=== PATIENT | male | born 1960 | race Two or more races ===

== ENCOUNTER 2016-11-11 04:22 | Inpatient (IN) | payer BC ==
[~2016-11-11] VITALS: Ht 177.8 cm; Wt 81.6 kg
[2016-11-11] VITALS (7 sets, daily range): BP systolic 121–169; BP diastolic 70–90
[2016-11-11] MEDS ORDERED: METFORMIN HCL500 M1 ORAL (04:38)
--- NOTE | 2016-11-11 04:40 | Emergency Room Report ---
History of Present Illness General Chief Complaint: Back Pain-No Injury Source: Patient Present Illness HPI Is a 55-year-old male with a history of kidney stones requiring lithotripsy. Last one was 6 years ago. He presents with chief complaint of right flank pain. Acute onset around 3 AM. He has nausea and vomiting. Pain is severe. 10 out of 10. Reading on the right groin. 2 days ago has similar pain but went away and he wasn't as bad. Denies any other trauma. Denies any other complaint. Allergies: Coded Allergies: No Known Allergies (Unverified , 11/11/16) Patient History Past Medical History: see triage record, old chart reviewed Past Surgical History: other Pertinent Family History: none Social History: Denies: smoking Immunizations: other Reviewed Nursing Documentation: PMH: Agreed, PSxH: Agreed Nursing Documentation-PMH Past Medical History: No History, Except For Hx Hypertension: Yes Hx Diabetes: Yes - dm 2 Review of Systems Eye: Denies: blurred vision, eye pain ENT: Denies: ear pain, nose congestion, throat swelling Respiratory: Denies: cough, shortness of breath Cardiovascular: Denies: chest pain, palpitations Gastrointestinal: Reports: abdominal pain, nausea, vomiting, Denies: diarrhea Musculoskeletal: Denies: back pain, joint pain Skin: Denies: rash Neurological: Denies: headache, numbness Endocrine: Denies: increased thirst, increased urine Hematologic/Lymphatic: Denies: easy bruising All Other Systems: negative except mentioned in HPI Physical Exam Vital Signs Date Time Temp Pulse Resp B/P Pulse Ox O2 Delivery O2 Flow Rate FiO2 11/11/16 04:31 68 20 181/96 99 Room Air vitals showed hypertension Sp02 EP Interpretation: reviewed, normal General Appearance: well appearing, no apparent distress, alert Head: normocephalic, atraumatic Eyes: bilateral eye EOMI, bilateral eye PERRL ENT: hearing grossly normal, normal pharynx Neck: full range of motion, supple, no meningismus Respiratory: chest non-tender, lungs clear, normal breath sounds Cardiovascular #1: regular rate, rhythm, no murmur Gastrointestinal: normal bowel sounds, non tender, no mass, no organomegaly, no bruit, non-distended Musculoskeletal: back normal, gait/station normal, normal range of motion Neurologic: alert, oriented x3 Psychiatric: mood/affect normal Skin: warm/dry Medical Decision Making Diagnostic Impression: Primary Impression: UTI (urinary tract infection) Qualified Codes: N30.00 - Acute cystitis without hematuria Additional Impressions: Ureteral stone with hydronephrosis Proteinuria ER Course Patient presents with a right ureteral stone. It showed obstruction with early infection. He is high risk for deterioration and sepsis. Will make for IV antibiotics and urology consultation. Patient pain is well-controlled now. Lab Results Impression labs unremarkable. CT/MRI/US Diagnostic Results CT/MRI/US Diagnostic Results : Imaging Test Ordered: CT abd/pelvis Impression Read by radiologist. 6 mm obstructing stone in the right distal half of the right ureter causing moderate hydronephrosis. Small amount of perinephric strip that straining. Last Vital Signs Date Time Temp Pulse Resp B/P Pulse Ox O2 Delivery O2 Flow Rate FiO2 11/11/16 04:31 68 20 181/96 99 Room Air Status: improved Disposition: ADMITTED INPATIENT Condition: Serious DESTINY QUILES M.D. Nov 11, 2016 04:40
[2016-11-11] MEDS ORDERED: Ketorolac 30mg Inj IV ONE (04:45)
[2016-11-11 05:06] LABS: BASOPHILS % (AUTO) 0.9 % (0.0-2.0); EOSINOPHILS % (AUTO) 0.6 % (0.0-3.0); LYMPHOCYTES % (AUTO) 26.7 % (20.0-45.0); MEAN CORPUSCULAR HEMOGLOBIN 30.5 PG (27.0-31.0); MEAN CORPUSCULAR HGB CONC 31.7 G/DL (32.0-36.0); MEAN CORPUSCULAR VOLUME 96 FL (80-99); MEAN PLATELET VOLUME 8.6 FL (6.5-10.1); MONOCYTES % (AUTO) 5.2 % (1.0-10.0); NEUTROPHILS % (AUTO) 66.7 % (45.0-75.0); PLATELET COUNT 242 K/UL (150-450); RED BLOOD COUNT 5.43 M/UL (4.70-6.10); RED CELL DISTRIBUTION WIDTH 12.3 % (11.6-14.8)
[2016-11-11 05:20] LABS: APPEARANCE,URINE SLIGHTLY CLOUDY; KETONES,URINE NEGATIVE (NEGATIVE); LEUKOCYTE ESTERASE ,URINE 1+ (NEGATIVE); NITRITE,URINE NEGATIVE (NEGATIVE); PH,URINE 5 (4.5-8.0); PROTEIN,URINE 3+ (NEGATIVE); UROBILINOGEN,URINE NORMAL MG/DL (0.0-1.0)
[2016-11-11 05:23] LABS: ANION GAP 14 (5-15); CALCIUM 9.4 mg/dL (8.6-10.2); CARBON DIOXIDE 25 mEQ/L (20-30); CHLORIDE 103 mEQ/L (98-107); CREATININE 1.1 mg/dL (0.7-1.2); GLOMERULAR FILTRATION RATE > 60 mL/min (>60); HEMOLYSIS 6; POTASSIUM 4.2 mEQ/L (3.4-4.9); SODIUM 142 mEQ/L (135-145)
[2016-11-11 05:41] LABS: BACTERIA,URINE FEW /HPF; RBC,URINE 30-40 /HPF (0 - 0); SQUAMOUS EPITHELIAL CELL,UR FEW /LPF (NONE/OCC)
--- NOTE | 2016-11-11 15:39 | History & Physical ---
History and Physical History & Physicial Dictated for Int Med-Dr Link no. [id number]. EDUARDO MORELAND Nov 11, 2016 15:39
[2016-11-11] MEDS: cefTRIAXone 1 GM in D5W 50 ML IVPB SCH (16:00)
[2016-11-11] MEDS: NovoLOG Insulin Flexpen SUBQ SCH ×2 (16:30→20:33)
[2016-11-11] MEDS: Norco 5mg/325mg tab ORAL PRN (17:45)
[2016-11-11] MEDS: metFORMIN 500mg tab ORAL SCH (18:50)
[2016-11-11] MEDS: Tamsulosin 0.4mg cap ORAL SCH (20:30)
--- NOTE | 2016-11-11 20:58 | Consultation ---
DATE OF CONSULTATION: 11/11/2016 CONSULTING PHYSICIAN: Derek Harris M.D. REFERRING PHYSICIAN: Speedy Link M.D. REASON FOR CONSULTATION: Evaluation of nephrolithiasis. HISTORY OF PRESENT ILLNESS: This is a pleasant 55-year-old male. He came to the emergency room because of right-sided flank pain. He had a CT scan that showed an obstructed 5 to 6 mm stone in the right mid ureter. There was a questionable infection. Urology evaluation is requested. The patient states that he has a history of kidney stones in the past and therefore he also required one laser lithotripsy two years ago. He has had some flank pain and nausea, which is now resolved. He denies fevers or chills. PAST MEDICAL HISTORY: Significant for above. Also history of diabetes and HIV. MEDICATIONS: Current medications here in the hospital, the patient was given Rocephin and Toradol. I believe he is on metformin at home. ALLERGIES: No known drug allergies. SOCIAL HISTORY: He is currently nonsmoker. FAMILY HISTORY: Noncontributory. REVIEW OF SYSTEMS: As above. PHYSICAL EXAMINATION: GENERAL: This is a well-developed and well-nourished male, in no acute distress. VITAL SIGNS: Temperature is 97.8, blood pressure is 139/86, pulse 71, and respirations 12. HEENT: Normocephalic. NECK: Supple. ABDOMEN: Soft. BACK: No CVA tenderness. EXTREMITIES: No clubbing or cyanosis. LABORATORY DATA: His white count is 12.0, hemoglobin 16.6, and platelets are 242,000. BUN is 25, creatinine 1.1, and potassium 4.2. UA showed 30 to 40 RBCs, 5 to 10 WBCs, 3+ protein, nitrites negative, and there is no bacteria. DIAGNOSTIC IMAGING STUDIES: The patient had a CT scan of the abdomen and pelvis. The preliminary report showed a 5 to 6 mm stone of the right distal ureter with hydronephrosis. There was mention of nonobstructing stone of the left kidney. IMPRESSION: 1. Nephrolithiasis. 2. Hydronephrosis. 3. Renal colic. 4. Hematuria. 5. Pyuria. 6. Urinary frequency by history. PLAN AND DISCUSSION: Again, the patient does have a moderate-sized stone of the right ureter with some obstruction. He did have flank pain, which is now resolved. He did have pyuria. He is currently feeling fairly well. I did go over the options of trial of passage versus ureteroscopy and laser lithotripsy. The patient would prefer to see if he can pass the stone and as such, we will strain his urine. I will also add tamsulosin 0.4 mg daily. He will be monitored. If he is not able to pass the stone or has pain or fevers, then we may have to proceed with stent placement and lithotripsy. I will follow the patient and any other recommendation will be forthcoming. Thank you, Dr. Link, for asking me to see this patient. Derek Harris M.D. DR: DENISE JOB#: [id number] CC:
--- NOTE | 2016-11-11 22:47 | History and Physical Report ---
DATE OF ADMISSION: 11/11/2016 CHIEF COMPLAINT: The patient is a 55-year-old male with history of previous renal calculi, who presents with complaint of right flank pain. HISTORY OF PRESENT ILLNESS: Began early this morning about 2 a.m. The patient awoke from his sleep with a right-sided flank pain. The patient states that the pain radiates from the lower right quadrant to the lower right back. The patient denies hematuria or dysuria. The patient presented to [facility]. The patient states that his pain was 10/10 intensity. The patient has a history of renal calculi x2. The patient was admitted for right flank pain to rule out pyelonephritis versus acute renal calculus. PAST MEDICAL HISTORY: Significant for, 1. Human immunodeficiency virus, which was diagnosed in 1991. The patient states his last T-cell count was greater than 700. The patient states his HIV viral load is undetectable. 2. History of renal calculi x2 in 2009 and 2010. 3. Type 2 diabetes. PAST SURGICAL HISTORY: Significant for, 1. Cystoscopy for renal calculus in 2009. 2. Appendectomy at age 16. CURRENT MEDICATIONS: 1. Metformin 500 mg one tablet p.o. twice daily. 2. Complera of an unknown dose daily. ALLERGIES: No known drug allergies. SOCIAL HISTORY: The patient is single and is retired from [employer]. The patient denies tobacco or alcohol use. REVIEW OF SYSTEMS: Constitutional: The patient denies weight loss or weight gain. The patient denies fevers or chills. HEENT: The patient denies ear or throat pain. The patient denies headache. Cardiovascular: The patient denies palpitations or chest pain. Chest: The patient denies wheeze or shortness of breath. Abdomen: The patient complains of right flank pain as above. The patient denies nausea, vomiting, diarrhea, or constipation. Genitourinary: The patient denies dysuria or increased frequency of urination. The patient denies hematuria. Neuromuscular: The patient denies seizures or generalized weakness. PHYSICAL EXAMINATION: VITAL SIGNS: Temperature 97.9 degrees, respirations 20, pulse 73, and blood pressure 129/77. GENERAL: The patient is a well-developed, well-nourished, male, in no apparent distress. HEENT: Eyes, pupils are equal and responsive to light and accommodation. Extraocular movements are intact. NECK: Supple without lymphadenopathy. CHEST: Lungs are clear to auscultation bilaterally without wheezes or rales. CARDIOVASCULAR: Regular rhythm and rate. S1 and S2 normal without murmurs, rubs, or gallops. ABDOMEN: Soft and nondistended with positive bowel sounds. There is tenderness to palpation in the right lower quadrant. There is CVA tenderness to the right back. RECTAL/GENITAL: Refused. NEUROLOGIC: Cranial nerves II through XII were grossly intact without focal deficits. Motor strength is 5/5 bilaterally. Deep tendon reflexes 2+ plantar. EXTREMITIES: Negative for clubbing, cyanosis, or edema. LABORATORY STUDIES: WBC 12.3, hemoglobin 16.6, hematocrit 52.3, and platelets 242,000. Sodium 142, potassium 4.2, chloride 103, CO2 25, BUN 25, creatinine 1.1, and glucose elevated at 154. Urinalysis showed 3+ protein, 5+ occult blood, 1+ leukocyte esterase, 30 to 40 RBCs, and 5 to 10 WBCs. ASSESSMENT: This is a 55-year-old male. 1. Right flank pain. 2. History of renal calculus. 3. Human immunodeficiency virus. 4. Diabetes type 2. TREATMENT: 1. Flank pain/history of renal calculi. A Neurology consultation was obtained with Dr. Lancaster. A CT scan of the abdomen is pending. The patient is currently receiving pain control with intravenous morphine. Recommendation of urology. The patient is currently strain all urine. 2. Human immunodeficiency virus. Complera is non-formulary at [facility]. An Infectious Disease consultation was obtained with Dr. Abarca. 3. Diabetes type 2. Continue metformin as above. A NovoLog sliding scale has been instituted. Scotty Tellez M.D. DR: MELINDA JOB#: [id number] CC:
[2016-11-12] VITALS: BP 130/75
[2016-11-12] MEDS: Norco 5mg/325mg tab ORAL PRN ×2 (01:39→08:11)
[2016-11-12 04:00] VITALS: BP 126/82
[2016-11-12] MEDS: NovoLOG Insulin Flexpen SUBQ SCH ×4 (06:30→21:00)
[2016-11-12 07:18] LABS: BASOPHILS % (AUTO) 1.5 % (0.0-2.0); EOSINOPHILS % (AUTO) 1.4 % (0.0-3.0); LYMPHOCYTES % (AUTO) 35.2 % (20.0-45.0); MEAN CORPUSCULAR HEMOGLOBIN 30.2 PG (27.0-31.0); MEAN CORPUSCULAR HGB CONC 31.7 G/DL (32.0-36.0); MEAN CORPUSCULAR VOLUME 95 FL (80-99); MEAN PLATELET VOLUME 7.9 FL (6.5-10.1); MONOCYTES % (AUTO) 8.1 % (1.0-10.0); NEUTROPHILS % (AUTO) 53.9 % (45.0-75.0); PLATELET COUNT 212 K/UL (150-450); RED BLOOD COUNT 4.74 M/UL (4.70-6.10); WHITE BLOOD COUNT 7.5 K/UL (4.8-10.8)
[2016-11-12 07:35] LABS: ALANINE AMINOTRANSFERASE 15 U/L (3-41); ALBUMIN/GLOBULIN RATIO 1.6 (1.0-2.7); ANION GAP 13 (5-15); ASPARTATE AMINO TRANSFERASE 18 U/L (5-40); CALCIUM 8.7 mg/dL (8.6-10.2); CARBON DIOXIDE 25 mEQ/L (20-30); CHLORIDE 102 mEQ/L (98-107); CREATININE 0.9 mg/dL (0.7-1.2); GLOMERULAR FILTRATION RATE > 60 mL/min (>60); HEMOLYSIS 8; MAGNESIUM 2.1 mg/dL (1.7-2.5); PHOSPHORUS 3.9 mg/dL (2.5-4.8); POTASSIUM 4.1 mEQ/L (3.4-4.9); SODIUM 140 mEQ/L (135-145); TOTAL PROTEIN 6.1 g/dL (6.6-8.7)
[2016-11-12 08:00] VITALS: BP 143/94
[2016-11-12] MEDS: metFORMIN 500mg tab ORAL SCH ×2 (08:10→18:07)
--- NOTE | 2016-11-12 09:51 | Urology Progress Note ---
Assessment/Plan Assessment/Plan 1. Nephrolithiasis. 2. Hydronephrosis. 3. Renal colic. 4. Hematuria. 5. Pyuria. 6. Urinary frequency by history. flomax and abx trial of passage may need litho/stent at some point Subjective Allergies: Coded Allergies: No Known Allergies (Unverified , 11/11/16) Subjective feels fair, no stone passed, occ pain Objective Last 24 Hour Vital Signs Date Time Temp Pulse Resp B/P Pulse Ox O2 Delivery O2 Flow Rate FiO2 11/12/16 09:10 97.9 11/12/16 08:00 97.5 70 19 143/94 97 Room Air 11/12/16 04:00 97.3 66 19 126/82 98 Room Air 11/12/16 00:00 97.7 72 18 130/75 98 Room Air 11/11/16 20:00 97.9 69 140/90 Room Air 11/11/16 16:00 97.9 68 21 127/76 97 Room Air 11/11/16 11:30 98.1 73 20 121/70 99 Room Air 11/11/16 10:30 98.1 64 18 135/75 99 Room Air 11/11/16 10:00 68 19 117/68 96 Room Air Intake and Output 11/11/16 11/12/16 19:00 07:00 Intake Total 1140 ml Balance 1140 ml Intake Oral 1140 ml # Voids 1 4 Current Medications Medications (Trade) Dose Ordered Sig/Maico Route PRN Reason Start Time Stop Time Status Last Admin Dose Admin Acetaminophen (Tylenol) 650 mg EVERY 6 HOURS PRN ORAL Mild Pain/Temp > 100.5 11/11/16 11:45 12/11/16 11:44 Acetaminophen/ Hydrocodone Bitart 1 tab 1 tab Q6H PRN ORAL For Pain 5-7 11/11/16 11:45 11/18/16 11:44 11/12/16 08:11 Ceftriaxone Sodium/Dextrose (Rocephin/D5W 50ml) 50 ml @ 100 mls/hr Q24H IVPB 11/11/16 16:00 11/18/16 15:59 Dextrose (Dextrose 50%) STAT PRN IV Hypoglycemia 11/11/16 15:30 12/11/16 15:29 Insulin Aspart (NovoLOG) BEFORE MEALS AND HS SUBQ 11/11/16 16:30 12/11/16 16:29 Metformin HCl (Glucophage) 500 mg BID ORAL 11/11/16 18:00 12/11/16 17:59 11/12/16 08:10 Morphine Sulfate (Morphine Sulfate) 2 mg EVERY 6 HOURS PRN IVP severe pain 8-10 11/11/16 11:45 11/18/16 11:44 Ondansetron HCl (Zofran) 4 mg EVERY 4 HOURS PRN IVP Nausea & Vomiting 11/11/16 15:00 12/11/16 14:59 Sodium Chloride 1,000 ml @ 75 mls/hr [id number] IV 11/11/16 11:45 12/11/16 11:44 11/12/16 01:34 Tamsulosin HCl (Flomax) 0.4 mg BEDTIME ORAL 11/11/16 21:00 12/11/16 20:59 11/11/16 20:30 Laboratory Tests 11/12/16 05:15: White Blood Count 7.5, Red Blood Count 4.74, Hemoglobin 14.3, Hematocrit 45.2, Mean Corpuscular Volume 95, Mean Corpuscular Hemoglobin 30.2, Mean Corpuscular Hemoglobin Concent 31.7L, Red Cell Distribution Width 12.0, Platelet Count 212, Mean Platelet Volume 7.9, Neutrophils (%) (Auto) 53.9, Lymphocytes (%) (Auto) 35.2, Monocytes (%) (Auto) 8.1, Eosinophils (%) (Auto) 1.4, Basophils (%) (Auto ) 1.5, Sodium Level 140, Potassium Level 4.1, Chloride Level 102, Carbon Dioxide Level 25, Anion Gap 13, Blood Urea Nitrogen 18, Creatinine 0.9, Estimat Glomerular Filtration Rate > 60, Glucose Level 109H, Hemoglobin A1c 5.8, Calcium Level 8.7, Phosphorus Level 3.9, Magnesium Level 2.1, Total Bilirubin 0.3, Aspartate Amino Transf (AST/SGOT) 18, Alanine Aminotransferase (ALT/SGPT) 15, Alkaline Phosphatase 52, Total Protein 6.1L, Albumin 3.8, Globulin 2.3, Albumin/Globulin Ratio 1.6 Height (Feet): 5 Height (Inches): 10.00 Weight (Pounds): 180 Objective exam stable RADHA THOMPSON Nov 12, 2016 09:51
--- NOTE | 2016-11-12 10:29 | Diagnostic Imaging Report ---
Indication: Abdominal pain Technique: Continuous helical transaxial imaging of the abdomen and pelvis was obtained from the lung bases to the pubic symphysis. No intravenous contrast was administered. Coronal 2-D reformats were also obtained. Total Dose length Product (DLP): [address] Dose Index Volume (CTDIvol): 16 mGy Comparison: none Findings: Lung bases are clear. There is right perinephric stranding and hydronephrosis secondary to a small stone in the right mid ureter measuring approximately 7 mm. Curvilinear constipation noted in the lower pole calyx of the left kidney consistent with a nonobstructive stone. Diverticula noted throughout the colon without diverticulitis. Gallbladder is unremarkable. No free fluid or free air identified. Appendix not identified but no secondary signs identified. Bilateral inguinal hernias containing fat are noted. Buttock implants noted. Impression: Hydronephrosis secondary to a 6 mm right mid ureter stone. Other incidental findings include bilateral inguinal hernias containing fat, diverticulosis of the colon, mild atherosclerotic vascular disease, buttock implants. [facility] has communicated the preliminary results to the Emergency Department. Their findings are largely concordant with this report. The CT scanner at [facility] is accredited by the [employer] and the scans are performed using protocols designed to limit radiation exposure to as low as reasonably achievable to attain images of sufficient resolution adequate for diagnostic evaluation.
[2016-11-12] MEDS: Morphine Sulfate 2mg/ml Inj IVP PRN (11:14)
[2016-11-12 12:00] VITALS: BP 146/91
--- NOTE | 2016-11-12 12:11 | Infectious Diseases Prog Note ---
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 4) pain mgt P) 1) ciprofloxacin 2) check uc 3) anti-retroviral complera not available - d/w pharmacy 4) thank you Subjective Allergies: Coded Allergies: No Known Allergies (Unverified , 11/11/16) Objective Vital Signs Last 24 Hour Vital Signs Date Time Temp Pulse Resp B/P Pulse Ox O2 Delivery O2 Flow Rate FiO2 11/12/16 11:44 97.9 11/12/16 09:10 97.9 11/12/16 08:00 97.5 70 19 143/94 97 Room Air 11/12/16 04:00 97.3 66 19 126/82 98 Room Air 11/12/16 00:00 97.7 72 18 130/75 98 Room Air 11/11/16 20:00 97.9 69 140/90 Room Air 11/11/16 16:00 97.9 68 21 127/76 97 Room Air Height (Feet): 5 Height (Inches): 10.00 Weight (Pounds): 180 Laboratory Tests Test 11/12/16 05:15 White Blood Count 7.5 K/UL (4.8-10.8) Red Blood Count 4.74 M/UL (4.70-6.10) Hemoglobin 14.3 G/DL (14.2-18.0) Hematocrit 45.2 % (42.0-52.0) Mean Corpuscular Volume 95 FL (80-99) Mean Corpuscular Hemoglobin 30.2 PG (27.0-31.0) Mean Corpuscular Hemoglobin Concent 31.7 G/DL (32.0-36.0) L Red Cell Distribution Width 12.0 % (11.6-14.8) Platelet Count 212 K/UL (150-450) Mean Platelet Volume 7.9 FL (6.5-10.1) Neutrophils (%) (Auto) 53.9 % (45.0-75.0) Lymphocytes (%) (Auto) 35.2 % (20.0-45.0) Monocytes (%) (Auto) 8.1 % (1.0-10.0) Eosinophils (%) (Auto) 1.4 % (0.0-3.0) Basophils (%) (Auto) 1.5 % (0.0-2.0) Sodium Level 140 mEQ/L (135-145) Potassium Level 4.1 mEQ/L (3.4-4.9) Chloride Level 102 mEQ/L (98-107) Carbon Dioxide Level 25 mEQ/L (20-30) Anion Gap 13 (5-15) Blood Urea Nitrogen 18 mg/dL (7-23) Creatinine 0.9 mg/dL (0.7-1.2) Estimat Glomerular Filtration Rate > 60 mL/min (>60) Glucose Level 109 mg/dL (74-106) H Hemoglobin A1c 5.8 % (< 6.0) Calcium Level 8.7 mg/dL (8.6-10.2) Phosphorus Level 3.9 mg/dL (2.5-4.8) Magnesium Level 2.1 mg/dL (1.7-2.5) Total Bilirubin 0.3 mg/dL (0.0-1.2) Aspartate Amino Transf (AST/SGOT) 18 U/L (5-40) Alanine Aminotransferase (ALT/SGPT) 15 U/L (3-41) Alkaline Phosphatase 52 U/L (40-129) Total Protein 6.1 g/dL (6.6-8.7) L Albumin 3.8 g/dL (3.5-5.2) Globulin 2.3 g/dL Albumin/Globulin Ratio 1.6 (1.0-2.7) Current Medications Medications (Trade) Dose Ordered Sig/Maico Route PRN Reason Start Time Stop Time Status Last Admin Dose Admin Acetaminophen (Tylenol) 650 mg EVERY 6 HOURS PRN ORAL Mild Pain/Temp > 100.5 11/11/16 11:45 12/11/16 11:44 Acetaminophen/ Hydrocodone Bitart 1 tab 1 tab Q6H PRN ORAL For Pain 5-7 11/11/16 11:45 11/18/16 11:44 11/12/16 08:11 Ceftriaxone Sodium/Dextrose (Rocephin/D5W 50ml) 50 ml @ 100 mls/hr Q24H IVPB 11/11/16 16:00 11/18/16 15:59 Dextrose (Dextrose 50%) STAT PRN IV Hypoglycemia 11/11/16 15:30 12/11/16 15:29 Insulin Aspart (NovoLOG) BEFORE MEALS AND HS SUBQ 11/11/16 16:30 12/11/16 16:29 Metformin HCl (Glucophage) 500 mg BID ORAL 11/11/16 18:00 12/11/16 17:59 11/12/16 08:10 Morphine Sulfate (Morphine Sulfate) 2 mg EVERY 6 HOURS PRN IVP severe pain 8-10 11/11/16 11:45 11/18/16 11:44 11/12/16 11:14 Ondansetron HCl (Zofran) 4 mg EVERY 4 HOURS PRN IVP Nausea & Vomiting 11/11/16 15:00 12/11/16 14:59 11/12/16 11:22 Sodium Chloride 1,000 ml @ 75 mls/hr [id number] IV 11/11/16 11:45 12/11/16 11:44 11/12/16 01:34 Tamsulosin HCl (Flomax) 0.4 mg BEDTIME ORAL 11/11/16 21:00 12/11/16 20:59 11/11/16 20:30 GENOVEVA VILLALTA Nov 12, 2016 12:11
[2016-11-12 16:00] VITALS: BP 135/94
[2016-11-12] MEDS: cefTRIAXone 1 GM in D5W 50 ML IVPB SCH (17:35)
--- NOTE | 2016-11-12 19:09 | Internal Med Progress Note ---
Subjective Date of Service: Nov 12, 2016 Physician Name Eduardo Moreland Attending Physician Speedy Link MD Current Medications Medications (Trade) Dose Ordered Sig/Maico Route PRN Reason Start Time Stop Time Status Last Admin Dose Admin Acetaminophen (Tylenol) 650 mg EVERY 6 HOURS PRN ORAL Mild Pain/Temp > 100.5 11/11/16 11:45 12/11/16 11:44 Acetaminophen/ Hydrocodone Bitart 1 tab 1 tab Q6H PRN ORAL For Pain 5-7 11/11/16 11:45 11/18/16 11:44 11/12/16 08:11 Ceftriaxone Sodium/Dextrose (Rocephin/D5W 50ml) 50 ml @ 100 mls/hr Q24H IVPB 11/11/16 16:00 11/18/16 15:59 11/12/16 17:35 Ciprofloxacin (Cipro 500mg tab) 500 mg EVERY 12 HOURS ORAL 11/12/16 21:00 11/19/16 20:59 Dextrose (Dextrose 50%) STAT PRN IV Hypoglycemia 11/11/16 15:30 12/11/16 15:29 Insulin Aspart (NovoLOG) BEFORE MEALS AND HS SUBQ 11/11/16 16:30 12/11/16 16:29 Metformin HCl (Glucophage) 500 mg BID ORAL 11/11/16 18:00 12/11/16 17:59 11/12/16 18:07 Morphine Sulfate (Morphine Sulfate) 2 mg EVERY 6 HOURS PRN IVP severe pain 8-10 11/11/16 11:45 11/18/16 11:44 11/12/16 11:14 Ondansetron HCl (Zofran) 4 mg EVERY 4 HOURS PRN IVP Nausea & Vomiting 11/11/16 15:00 12/11/16 14:59 11/12/16 11:22 Sodium Chloride 1,000 ml @ 75 mls/hr [id number] IV 11/11/16 11:45 12/11/16 11:44 11/12/16 01:34 Tamsulosin HCl (Flomax) 0.4 mg BEDTIME ORAL 11/11/16 21:00 12/11/16 20:59 11/11/16 20:30 Allergies: Coded Allergies: No Known Allergies (Unverified , 11/11/16) ROS Limited/Unobtainable: No Constitutional: Reports: no symptoms HEENT: Reports: no symptoms Cardiovascular: Reports: no symptoms Respiratory: Reports: no symptoms Gastrointestinal/Abdominal: Reports: other - right flank pain Genitourinary: Reports: flank pain, hematuria Subjective 55 YO M admitted with right flank pain; now right ureteral stone and hydronephrosis. Cover for Int [facility]-Dr Link. C/O right flank pain. Objective Last Vital Signs Date Time Temp Pulse Resp B/P Pulse Ox O2 Delivery O2 Flow Rate FiO2 11/12/16 16:00 98.1 85 20 135/94 97 Room Air General Appearance: WD/WN, no apparent distress, alert EENT: PERRL/EOMI, normal ENT inspection Neck: non-tender, normal alignment, supple, normal inspection Cardiovascular: normal peripheral pulses, normal rate, regular rhythm, no gallop/murmur, no JVD Respiratory/Chest: chest wall non-tender, lungs clear, normal breath sounds, no respiratory distress, no accessory muscle use Abdomen: normal bowel sounds, soft, no organomegaly, no mass, tender - right flank pain Neurologic: furniture upholsterer II-XII grossly normal, no motor/sensory deficits Skin: normal pigmentation, warm/dry Laboratory Tests Test 11/12/16 05:15 White Blood Count 7.5 K/UL (4.8-10.8) Red Blood Count 4.74 M/UL (4.70-6.10) Hemoglobin 14.3 G/DL (14.2-18.0) Hematocrit 45.2 % (42.0-52.0) Mean Corpuscular Volume 95 FL (80-99) Mean Corpuscular Hemoglobin 30.2 PG (27.0-31.0) Mean Corpuscular Hemoglobin Concent 31.7 G/DL (32.0-36.0) L Red Cell Distribution Width 12.0 % (11.6-14.8) Platelet Count 212 K/UL (150-450) Mean Platelet Volume 7.9 FL (6.5-10.1) Neutrophils (%) (Auto) 53.9 % (45.0-75.0) Lymphocytes (%) (Auto) 35.2 % (20.0-45.0) Monocytes (%) (Auto) 8.1 % (1.0-10.0) Eosinophils (%) (Auto) 1.4 % (0.0-3.0) Basophils (%) (Auto) 1.5 % (0.0-2.0) Sodium Level 140 mEQ/L (135-145) Potassium Level 4.1 mEQ/L (3.4-4.9) Chloride Level 102 mEQ/L (98-107) Carbon Dioxide Level 25 mEQ/L (20-30) Anion Gap 13 (5-15) Blood Urea Nitrogen 18 mg/dL (7-23) Creatinine 0.9 mg/dL (0.7-1.2) Estimat Glomerular Filtration Rate > 60 mL/min (>60) Glucose Level 109 mg/dL (74-106) H Hemoglobin A1c 5.8 % (< 6.0) Calcium Level 8.7 mg/dL (8.6-10.2) Phosphorus Level 3.9 mg/dL (2.5-4.8) Magnesium Level 2.1 mg/dL (1.7-2.5) Total Bilirubin 0.3 mg/dL (0.0-1.2) Aspartate Amino Transf (AST/SGOT) 18 U/L (5-40) Alanine Aminotransferase (ALT/SGPT) 15 U/L (3-41) Alkaline Phosphatase 52 U/L (40-129) Total Protein 6.1 g/dL (6.6-8.7) L Albumin 3.8 g/dL (3.5-5.2) Globulin 2.3 g/dL Albumin/Globulin Ratio 1.6 (1.0-2.7) Intake and Output 11/11/16 11/12/16 19:00 07:00 Intake Total 1140 ml Balance 1140 ml Intake Oral 1140 ml # Voids 1 4 Assessment/Plan Problem List: (1) Renal calculi (2) HIV (human immunodeficiency virus infection) Assessment & Plan: Complera non formulary. See ID note. (3) Diabetes mellitus Assessment & Plan: Cont metformin and novolog sliding scale. (4) Hydronephrosis (5) Ureteral stone with hydronephrosis Assessment & Plan: Right. See urology note. May require lithotripsy vs ureteroscopy if stone does not spontaneously pass. (6) UTI (urinary tract infection) Assessment & Plan: Await urine cult and sens. Cont ciprofloxacin for now. Status: not improved EDUARDO MORELAND Nov 12, 2016 19:09
[2016-11-12 20:00] VITALS: BP 150/91
[2016-11-12] MEDS ORDERED: Ciprofloxacin 500mg tab ORAL SCH (21:00)
[2016-11-12] MEDS: Tamsulosin 0.4mg cap ORAL SCH (21:14)
--- NOTE | 2016-11-12 23:47 | Consultation ---
DATE OF CONSULTATION: 11/12/2016 INFECTIOUS DISEASE CONSULTATION: ATTENDING PHYSICIAN: Speedy Link M.D. I was asked by Dr. Scotty Tellez to see this patient. CHIEF COMPLAINT: The patient's chief complaint coming in with kidney stones. REASON FOR CONSULTATION: Possible UTI and HIV. HISTORY OF PRESENT ILLNESS: This is a very pleasant 55-year-old male who comes in with right flank pain. The patient had a CT scan of the abdomen and pelvis, which showed right renal calculi or renal stone in the right ureter. The patient also had hydronephrosis. The patient has an elevated white count and possible urinalysis. He has positive UTI. Infectious Disease consultation requested for antibiotic management. getting IV antibiotics for this patient. At this time, I placed him on Cipro. Urine cultures pending. The patient also HIV positive with T-cell count. He said around 700 plus. He is presently on Complera, however, I discussed with pharmacy yesterday. All the components of Complera not available in this facility. At this time, the patient cannot Complera. MAR was noted. Orders were noted. Case discussed with Dr. Tellez. PAST MEDICAL HISTORY: Includes history of following, the patient has a past medical history of HIV diagnosed in 1981 T-cell count is greater than 700 and viral load is undetectable. He has a history of type 2 diabetes. Also history of renal calculi in the past. Please see past medical history in medical order. MEDICATIONS: Prior to admission included metformin and Complera. Presently, Rocephin cannot be given to this patient. I put him on Cipro. Other medications, he is on pain medications including Flomax, Glucophage, NovoLog insulin, IV fluids, Zofran, Tylenol, morphine, and [place]. Please see medications in medical order. ALLERGIES: No known drug allergies. SOCIAL HISTORY: Negative for smoking, alcohol, or drug abuse. FAMILY HISTORY: Noncontributory. Negative for exposure to tuberculosis or cancer. REVIEW OF SYSTEMS: Constitutional: The patient has generalized weakness and fatigue, but no fever, chills, or night sweats. Head And Neck: No thrush, dysphagia or sinus tenderness. Cardiac: No chest pain or palpitations. GI: No nausea, vomiting, or diarrhea. : No dysuria or frequency. He has right flank pain. Pulmonary: No shortness of breath, cough, or sputum production. Skin: No rash or itching. Extremities: No extremity pain. Neurologic: No seizures. PHYSICAL EXAMINATION: GENERAL: The patient is alert and responsive, in no acute distress. VITAL SIGNS: Temperature 97.9 degrees, pulse 70, respiratory rate 19, blood pressure 142/94, and saturation 97%. HEENT: Head and Neck: Oral exam, no thrush. Eye exam, no icterus. Neck is supple. No JVD. No sinus tenderness. Normocephalic. No facial droop. No neck stiffness. HEART: Regular. No gallop or murmur. No friction or rub. LUNGS: Clear bilaterally. No rhonchi or rales. ABDOMEN: Soft. Positive bowel sounds. Nontender. SKIN: No rash or dermatitis. MUSCULOSKELETAL: No effusions noted. Legs are without cellulitis. PERIPHERAL VASCULAR: No cyanosis or gangrene. RECTAL: Deferred. GENITOURINARY: No Zambrano. He has right CVA pain. LINE: Line site is without phlebitis. NEUROLOGIC: No seizures. Intact. LABORATORY AND DIAGNOSTIC DATA: As follows, white count on admission 12.0 now 7.5. Creatinine is 0.9. Urine culture is pending. Urinalysis had 1+ leukocyte esterase, 3-4 RBCs, 5-10 white blood cells, and positive urinalysis. Urine culture is pending. Imaging studies, CT scan the abdomen and pelvis showed hydronephrosis with right renal ureteral calculi. ASSESSMENT AND PLAN: 1. The patient has a right renal ureteral calculi or renal stone, hydronephrosis, and possible urinary tract infection. The patient has leukocytosis. Continue antibiotics. Rocephin. At this time, we will place him on IV Rocephin. We will place him or oral Cipro. We will check urine culture. The patient has been seen by Urology. I discussed with Dr. Harris and hopefully kidney stones passes if not may need surgical intervention. urine culture. Dr. Tellez. 2. Human immunodeficiency virus. T-cell count greater than 700. No need to get a CD4 follow up with primary HIV doctor. We do not have all the components of Complera available and discussed with pharmacy at this time. 3. Pain management and treatment per Dr. Tellez. 4. Diabetes treatment per Dr. Tellez. 5. . 6. IV fluids. 7. No known allergies. 8. Social history negative. 9. MAR was noted. 10. Case discussed with Dr. Tellez and Dr. Harris as well as RN. Susana Abarca M.D. DR: Gianni JOB#: [id number] CC:
[2016-11-13] VITALS: BP 142/87
[2016-11-13 06:26] LABS: BASOPHILS % (AUTO) 1.4 % (0.0-2.0); LYMPHOCYTES % (AUTO) 36.1 % (20.0-45.0); MEAN CORPUSCULAR HGB CONC 31.5 G/DL (32.0-36.0); MEAN CORPUSCULAR VOLUME 95 FL (80-99); MEAN PLATELET VOLUME 7.4 FL (6.5-10.1); MONOCYTES % (AUTO) 7.8 % (1.0-10.0); NEUTROPHILS % (AUTO) 53.8 % (45.0-75.0); PLATELET COUNT 216 K/UL (150-450); RED BLOOD COUNT 4.86 M/UL (4.70-6.10); RED CELL DISTRIBUTION WIDTH 12.4 % (11.6-14.8); WHITE BLOOD COUNT 7.2 K/UL (4.8-10.8)
[2016-11-13] MEDS: NovoLOG Insulin Flexpen SUBQ SCH ×2 (06:30→11:30)
[2016-11-13 06:56] LABS: ANION GAP 10 (5-15); CALCIUM 8.9 mg/dL (8.6-10.2); CARBON DIOXIDE 27 mEQ/L (20-30); CHLORIDE 102 mEQ/L (98-107); CREATININE 0.8 mg/dL (0.7-1.2); GLOMERULAR FILTRATION RATE > 60 mL/min (>60); HEMOLYSIS 4; POTASSIUM 4.1 mEQ/L (3.4-4.9); SODIUM 139 mEQ/L (135-145)
[2016-11-13 08:00] VITALS: BP 143/82
[2016-11-13] MEDS: Norco 5mg/325mg tab ORAL PRN (09:25)
[2016-11-13] MEDS: metFORMIN 500mg tab ORAL SCH (09:25)
--- NOTE | 2016-11-13 10:12 | Urology Progress Note ---
Assessment/Plan Assessment/Plan 1. Nephrolithiasis. 2. Hydronephrosis. 3. Renal colic. 4. Hematuria. 5. Pyuria. 6. Urinary frequency by history. flomax and abx pt wants to cont with trial of passage refusing any other intervention may need litho/stent at some point d/w Dr. Tellez Subjective Allergies: Coded Allergies: No Known Allergies (Unverified , 11/11/16) Subjective feels fair, no stone passed, occ pain Objective Last 24 Hour Vital Signs Date Time Temp Pulse Resp B/P Pulse Ox O2 Delivery O2 Flow Rate FiO2 11/13/16 08:00 97.9 68 18 143/82 97 Room Air 11/13/16 00:00 98.1 76 16 142/87 98 Room Air 11/12/16 20:00 98.6 79 20 150/91 97 Room Air 11/12/16 16:00 98.1 85 20 135/94 97 Room Air 11/12/16 12:00 98.4 81 20 146/91 98 Room Air 11/12/16 11:44 97.9 Intake and Output 11/12/16 11/13/16 19:00 07:00 Intake Total 1120 ml 120 ml Balance 1120 ml 120 ml Intake Oral 720 ml 120 ml IV Total 400 ml # Voids 7 1 Microbiology Date/Time Source Procedure Growth Status 11/11/16 15:25 Blood Blood Culture - Preliminary NO GROWTH AFTER 24 HOURS Resulted 11/12/16 10:00 Indwelling Cath Urine Culture - Preliminary NO GROWTH Resulted Current Medications Medications (Trade) Dose Ordered Sig/[place] Route PRN Reason Start Time Stop Time Status Last Admin Dose Admin Acetaminophen (Tylenol) 650 mg EVERY 6 HOURS PRN ORAL Mild Pain/Temp > 100.5 11/11/16 11:45 12/11/16 11:44 Acetaminophen/ Hydrocodone Bitart 1 tab 1 tab Q6H PRN ORAL For Pain 5-7 11/11/16 11:45 11/18/16 11:44 11/13/16 09:25 Ceftriaxone Sodium/Dextrose (Rocephin/D5W 50ml) 50 ml @ 100 mls/hr Q24H IVPB 11/11/16 16:00 11/18/16 15:59 11/12/16 17:35 Dextrose (Dextrose 50%) STAT PRN IV Hypoglycemia 11/11/16 15:30 12/11/16 15:29 Insulin Aspart (NovoLOG) BEFORE MEALS AND HS SUBQ 11/11/16 16:30 12/11/16 16:29 Metformin HCl (Glucophage) 500 mg BID ORAL 11/11/16 18:00 12/11/16 17:59 11/13/16 09:25 Morphine Sulfate (Morphine Sulfate) 2 mg EVERY 6 HOURS PRN IVP severe pain 8-10 11/11/16 11:45 11/18/16 11:44 11/12/16 11:14 Ondansetron HCl (Zofran) 4 mg EVERY 4 HOURS PRN IVP Nausea & Vomiting 11/11/16 15:00 12/11/16 14:59 11/12/16 11:22 Sodium Chloride 1,000 ml @ 75 mls/hr [id number] IV 11/11/16 11:45 12/11/16 11:44 11/13/16 02:48 Tamsulosin HCl (Flomax) 0.4 mg BEDTIME ORAL 11/11/16 21:00 12/11/16 20:59 11/12/16 21:14 Laboratory Tests 11/13/16 05:45: White Blood Count 7.2, Red Blood Count 4.86, Hemoglobin 14.6, Hematocrit 46.2, Mean Corpuscular Volume 95, Mean Corpuscular Hemoglobin 30.0, Mean Corpuscular Hemoglobin Concent 31.5L, Red Cell Distribution Width 12.4, Platelet Count 216, Mean Platelet Volume 7.4, Neutrophils (%) (Auto) 53.8, Lymphocytes (%) (Auto) 36.1, Monocytes (%) (Auto) 7.8, Eosinophils (%) (Auto) 1.0, Basophils (%) (Auto ) 1.4, Sodium Level 139, Potassium Level 4.1, Chloride Level 102, Carbon Dioxide Level 27, Anion Gap 10, Blood Urea Nitrogen 14, Creatinine 0.8, Estimat Glomerular Filtration Rate > 60, Glucose Level 104, Calcium Level 8.9 Height (Feet): 5 Height (Inches): 10.00 Weight (Pounds): 180 Objective exam stable RADHA THOPMSON Nov 13, 2016 10:12
[2016-11-13] MEDS ORDERED: FLOMAX0.4 MG ORAL (10:30)
[2016-11-13] MEDS ORDERED: NORCO 5-325 TA1 EACH ORAL (10:30)
--- NOTE | 2016-11-13 10:35 | Internal Med Progress Note ---
Subjective Date of Service: Nov 13, 2016 Physician Name Scotty Moreland Attending Physician Speedy Link MD Current Medications Medications (Trade) Dose Ordered Sig/[place] Route PRN Reason Start Time Stop Time Status Last Admin Dose Admin Acetaminophen (Tylenol) 650 mg EVERY 6 HOURS PRN ORAL Mild Pain/Temp > 100.5 11/11/16 11:45 12/11/16 11:44 Acetaminophen/ Hydrocodone Bitart 1 tab 1 tab Q6H PRN ORAL For Pain 5-7 11/11/16 11:45 11/18/16 11:44 11/13/16 09:25 Ceftriaxone Sodium/Dextrose (Rocephin/D5W 50ml) 50 ml @ 100 mls/hr Q24H IVPB 11/11/16 16:00 11/18/16 15:59 11/12/16 17:35 Dextrose (Dextrose 50%) STAT PRN IV Hypoglycemia 11/11/16 15:30 12/11/16 15:29 Insulin Aspart (NovoLOG) BEFORE MEALS AND HS SUBQ 11/11/16 16:30 12/11/16 16:29 Metformin HCl (Glucophage) 500 mg BID ORAL 11/11/16 18:00 12/11/16 17:59 11/13/16 09:25 Morphine Sulfate (Morphine Sulfate) 2 mg EVERY 6 HOURS PRN IVP severe pain 8-10 11/11/16 11:45 11/18/16 11:44 11/12/16 11:14 Ondansetron HCl (Zofran) 4 mg EVERY 4 HOURS PRN IVP Nausea & Vomiting 11/11/16 15:00 12/11/16 14:59 11/12/16 11:22 Sodium Chloride 1,000 ml @ 75 mls/hr [id number] IV 11/11/16 11:45 12/11/16 11:44 11/13/16 02:48 Tamsulosin HCl (Flomax) 0.4 mg BEDTIME ORAL 11/11/16 21:00 12/11/16 20:59 11/12/16 21:14 Allergies: Coded Allergies: No Known Allergies (Unverified , 11/11/16) Subjective 55 YO M admitted with right flank pain; now right ureteral stone and hydronephrosis. Cover for Int Med-Dr Link. Right flank pain improved. Objective Last Vital Signs Date Time Temp Pulse Resp B/P Pulse Ox O2 Delivery O2 Flow Rate FiO2 11/13/16 08:00 97.9 68 18 143/82 97 Room Air Laboratory Tests Test 11/13/16 05:45 White Blood Count 7.2 K/UL (4.8-10.8) Red Blood Count 4.86 M/UL (4.70-6.10) Hemoglobin 14.6 G/DL (14.2-18.0) Hematocrit 46.2 % (42.0-52.0) Mean Corpuscular Volume 95 FL (80-99) Mean Corpuscular Hemoglobin 30.0 PG (27.0-31.0) Mean Corpuscular Hemoglobin Concent 31.5 G/DL (32.0-36.0) L Red Cell Distribution Width 12.4 % (11.6-14.8) Platelet Count 216 K/UL (150-450) Mean Platelet Volume 7.4 FL (6.5-10.1) Neutrophils (%) (Auto) 53.8 % (45.0-75.0) Lymphocytes (%) (Auto) 36.1 % (20.0-45.0) Monocytes (%) (Auto) 7.8 % (1.0-10.0) Eosinophils (%) (Auto) 1.0 % (0.0-3.0) Basophils (%) (Auto) 1.4 % (0.0-2.0) Sodium Level 139 mEQ/L (135-145) Potassium Level 4.1 mEQ/L (3.4-4.9) Chloride Level 102 mEQ/L (98-107) Carbon Dioxide Level 27 mEQ/L (20-30) Anion Gap 10 (5-15) Blood Urea Nitrogen 14 mg/dL (7-23) Creatinine 0.8 mg/dL (0.7-1.2) Estimat Glomerular Filtration Rate > 60 mL/min (>60) Glucose Level 104 mg/dL (74-106) Calcium Level 8.9 mg/dL (8.6-10.2) Microbiology Date/Time Source Procedure Growth Status 11/11/16 15:25 Blood Blood Culture - Preliminary NO GROWTH AFTER 24 HOURS Resulted 11/11/16 15:10 Blood Blood Culture - Preliminary NO GROWTH AFTER 24 HOURS Resulted 11/12/16 10:00 Indwelling Cath Urine Culture - Preliminary NO GROWTH Resulted Intake and Output 11/12/16 11/13/16 19:00 07:00 Intake Total 1120 ml 120 ml Balance 1120 ml 120 ml Intake Oral 720 ml 120 ml IV Total 400 ml # Voids 7 1 Objective General Appearance: WD/WN, no apparent distress, alert EENT: PERRL/EOMI, normal ENT inspection Neck: non-tender, normal alignment, supple, normal inspection Cardiovascular: normal peripheral pulses, normal rate, regular rhythm, no gallop/murmur, no JVD Respiratory/Chest: chest wall non-tender, lungs clear, normal breath sounds, no respiratory distress, no accessory muscle use Abdomen: normal bowel sounds, soft, no organomegaly, no mass, tender - right flank pain Neurologic: strategic manager II-XII grossly normal, no motor/sensory deficits Skin: normal pigmentation, warm/dry Assessment/Plan Problem List: (1) Renal calculi (2) HIV (human immunodeficiency virus infection) Assessment & Plan: Complera non formulary. See ID note. (3) Diabetes mellitus Assessment & Plan: Cont metformin and novolog sliding scale. (4) Hydronephrosis (5) Ureteral stone with hydronephrosis Assessment & Plan: Right. See urology note. May require lithotripsy vs ureteroscopy if stone does not spontaneously pass. (6) UTI (urinary tract infection) Assessment & Plan: Await urine cult and sens. Cont ceftriaxone for now per ID Status: progressing Assessment/Plan Possible discharge home today if cleared by urology. SCOTTY MORELAND Nov 13, 2016 10:35
[2016-11-13 12:00] VITALS: BP 150/90
[2016-11-13] MEDS: Morphine Sulfate 2mg/ml Inj IVP PRN (13:03)
[2016-11-13 16:00] VITALS: BP 147/86
--- NOTE | 2016-11-13 17:04 | Infectious Diseases Prog Note ---
Assessment/Plan Assessment/Plan ASSESSMENT AND PLAN: 1. right renal calculi with hydronephrosis, possible uti, + ua - rocephin, uc negative so far - check final uc 2. hiv - cd4 > 700, complera components not available at this hospital, patient to resume anti-retrovirals at home 3. Pain management and treatment per Dr. Tellez. 4. Diabetes treatment per Dr. Tellez. 5. dm, hx renal calculi 6. IV fluids. 7. No known allergies. 8. Social history negative. 9. MAR was noted., fh-nc, sh - negative 10. d/w RN and patient Subjective Constitutional: Denies: fever Respiratory: Denies: shortness of breath Cardiovascular: Denies: chest pain Gastrointestinal/Abdominal: Denies: nausea Genitourinary: Denies: dysuria Neurologic: Denies: headache Psychiatric: Denies: depression Hematologic: Denies: bleeding Musculoskeletal: Denies: pain Allergies: Coded Allergies: No Known Allergies (Unverified , 11/11/16) Objective Vital Signs Last 24 Hour Vital Signs Date Time Temp Pulse Resp B/P Pulse Ox O2 Delivery O2 Flow Rate FiO2 11/13/16 16:00 98.2 82 20 147/86 98 Room Air 11/13/16 13:33 98.1 11/13/16 12:00 98.1 84 20 150/90 97 Room Air 11/13/16 10:24 98.1 11/13/16 08:00 97.9 68 18 143/82 97 Room Air 11/13/16 00:00 98.1 76 16 142/87 98 Room Air 11/12/16 20:00 98.6 79 20 150/91 97 Room Air Height (Feet): 5 Height (Inches): 10.00 Weight (Pounds): 180 General Appearance: no acute distress HEENT: normocephalic, atraumatic, anicteric, mucous membranes moist, PERRL, pharynx normal, supple, no JVD Respiratory/Chest: lungs clear, normal breath sounds, no respiratory distress, no accessory muscle use Cardiovascular: normal rate, regular rhythm, no gallop/murmur, no JVD Abdomen: normal bowel sounds, soft, non tender, no organomegaly, non distended Genitourinary: other - no Extremities: no cyanosis Skin: no rash Neurologic/Psychiatric: concaver II-XII grossly normal, alert, oriented x 3, responsive Lymphatic: no neck adenopathy Musculoskeletal: no effusion Objective CT scan results: Impression: Hydronephrosis secondary to a 6 mm right mid ureter stone. Other incidental findings include bilateral inguinal hernias containing fat, diverticulosis of the colon, mild atherosclerotic vascular disease, buttock implants. Microbiology Date/Time Source Procedure Growth Status 11/11/16 15:25 Blood Blood Culture - Preliminary NO GROWTH AFTER 24 HOURS Resulted 11/11/16 15:10 Blood Blood Culture - Preliminary NO GROWTH AFTER 24 HOURS Resulted 11/12/16 10:00 Indwelling Cath Urine Culture - Preliminary NO GROWTH Resulted Laboratory Tests Test 11/13/16 05:45 White Blood Count 7.2 K/UL (4.8-10.8) Red Blood Count 4.86 M/UL (4.70-6.10) Hemoglobin 14.6 G/DL (14.2-18.0) Hematocrit 46.2 % (42.0-52.0) Mean Corpuscular Volume 95 FL (80-99) Mean Corpuscular Hemoglobin 30.0 PG (27.0-31.0) Mean Corpuscular Hemoglobin Concent 31.5 G/DL (32.0-36.0) L Red Cell Distribution Width 12.4 % (11.6-14.8) Platelet Count 216 K/UL (150-450) Mean Platelet Volume 7.4 FL (6.5-10.1) Neutrophils (%) (Auto) 53.8 % (45.0-75.0) Lymphocytes (%) (Auto) 36.1 % (20.0-45.0) Monocytes (%) (Auto) 7.8 % (1.0-10.0) Eosinophils (%) (Auto) 1.0 % (0.0-3.0) Basophils (%) (Auto) 1.4 % (0.0-2.0) Sodium Level 139 mEQ/L (135-145) Potassium Level 4.1 mEQ/L (3.4-4.9) Chloride Level 102 mEQ/L (98-107) Carbon Dioxide Level 27 mEQ/L (20-30) Anion Gap 10 (5-15) Blood Urea Nitrogen 14 mg/dL (7-23) Creatinine 0.8 mg/dL (0.7-1.2) Estimat Glomerular Filtration Rate > 60 mL/min (>60) Glucose Level 104 mg/dL (74-106) Calcium Level 8.9 mg/dL (8.6-10.2) GENOVEVA Young Nov 13, 2016 17:04
--- NOTE | 2016-11-14 05:37 | Discharge Summary ---
DATE OF ADMISSION: 11/11/2016 DATE OF DISCHARGE: 11/13/2016 ADMITTING DIAGNOSES: 1. Right flank pain. 2. Human immunodeficiency virus. 3. Diabetes type 2. 4. Nephrolithiasis. 5. Hydronephrosis. DISCHARGE DIAGNOSES: 1. Right ureter stone. 2. Right flank pain. 3. Renal calculus. 4. Human immunodeficiency virus. 5. Diabetes type 2. 6. Nephrolithiasis. 7. Hydronephrosis. HOSPITAL COURSE BY PROBLEMS: 1. Mid right ureteral stone/right flank pain. A Urology consultation was obtained with Dr. Harris. The patient was placed on Flomax. The patient strained his urine. A CT scan of the abdomen revealed a ureter stone in the mid right ureter. The stone has now passed. The patient is currently pain free. The patient is to follow up with Dr. Harris in one week for possible cystoscopy and ureteroscopy. 2. Human immunodeficiency virus and Infectious Disease consultation was obtained with Dr. Abarca. The patient remained on HAART therapy during the hospitalization. The patient is to follow up with Dr. Abarca as an outpatient. 3. Diabetes type 2. The patient remained on metformin 500 mg one tablet p.o. twice daily. A NovoLog sliding scale was instituted. DISCHARGE MEDICATIONS: Please refer to discharge medication list. DISCHARGE INSTRUCTIONS: The patient is discharged home today, 11/13/2016. FOLLOWUP: 1. The patient is to follow up with his primary care physician in one week. 2. The patient is to follow up with Dr. Harris in one week. Scotty Tellez M.D. DR: DONITA JOB#: [id number] CC:
== END 2016-11-13 16:35 | disposition home or self-care (01) | DRG 694 ==
LOC: EMR 04:50 → 4W 06:31 → EDBEDREQ 08:58 → 4W 11-12 19:37
PROC: BW21ZZZ Computerized Tomography (CT Scan) of Abdomen and Pelvis (ICD-10-PCS; principal; 2016-11-11)
DX: N13.2 Hydronephrosis with renal and ureteral calculous obstruction (principal); N30.90 Cystitis, unspecified without hematuria; I10 Essential (primary) hypertension; Z87.442 Personal history of urinary calculi; E11.9 Type 2 diabetes mellitus without complications; Z79.84 Long term (current) use of oral hypoglycemic drugs; Z79.899 Other long term (current) drug therapy
CPT/HCPCS: 36415; 74176; 80048; 80053; 81003; 82962; 83036; 83735; 84100; 85025; 87040; 87086; J1815; J2405